=== PATIENT | female | born 1985 | race Caucasian/White ===

== ENCOUNTER 2019-12-09 08:33 | Emergency (ER) | payer MEDICAID ==
[~2019-12-09] VITALS: Ht 149.9 cm; Wt 79.8 kg
[2019-12-09 08:35] VITALS: BP 130/79
--- NOTE | 2019-12-09 08:42 | NUR ---
PT AMBULATES TO BED 7
--- NOTE | 2019-12-09 08:46 | NUR ---
34 Y/O FEMALE C/O COUGH, SORE THROAT, AND HEADACHE X 3 DAYS. DRY, NONPRODUCTIVE COUGH. DENIES N/V/D. NO SOB/CHEST PAIN. RR EVEN AND UNLABORED. DENIES SMOKING. HAS NOT TAKEN ANY MEDICATIONS TODAY. AFEBRILE. SITTING UPRIGHT X 1 SIDE RAIL RAISED. AT BEDSIDE. MEDHX: DM ALLERGIES: NKA
--- NOTE | 2019-12-09 08:48 | NUR ---
DR GARRETT AT BEDSIDE EXAMINING PT
--- NOTE | 2019-12-09 09:10 | NUR ---
STEP SWAB COLLECTED AND GIVEN TO LAB.
[2019-12-09 10:20] VITALS: BP 124/77
--- NOTE | 2019-12-09 10:21 | NUR ---
Patient discharged with v/s stable. Written and verbal after care instructions given and explained. Patient verbalized understanding. Ambulatory with steady gait. All questions addressed prior to discharge. Advised to follow up with PMD.
== END 2019-12-09 10:21 | disposition home or self-care (01) ==
LOC: MED 08:33
DX: J02.9 Acute pharyngitis, unspecified (principal); Z98.890 Other specified postprocedural states
CPT/HCPCS: 87081; 99283

== ENCOUNTER 2020-06-29 19:25 | Emergency (ER) | payer MEDICAID ==
[~2020-06-29] VITALS: Ht 149.9 cm; Wt 78.5 kg
[2020-06-29 19:33] VITALS: BP 159/105
--- NOTE | 2020-06-29 19:40 | NUR ---
34 YO F BIB SELF FOR C/C OF INTERMITTENT LOWER ABD SHARP PAIN X3 DAYS. PT STATES IT IS 3/10 AT THIS TIME. DENIES ANY PREVIOUS ABD SURGERIES. PT STATES SHE IS NAUSEOUS WITH NO VOMITING. DENIES TRAVEL, FEVER, COUGH, SOB. PT DENIES ANY OTC MEDS FOR PAIN. BED LOCKED AND IN LOWEST POSITION. SIDE RAILS X1. MED HX: DM2, HTN NKA RX: HUMYANCY CHURCH
--- NOTE | 2020-06-29 19:41 | NUR ---
PT AMBULATED TO BED #2
--- NOTE | 2020-06-29 19:58 | NUR ---
ERMD AT BEDSIDE EVALUATING PT
[2020-06-29] MEDS ORDERED: METOCLOPRAMIDE 10 MG TAB PO ONE (20:05)
[2020-06-29] MEDS ORDERED: ACETAMINOPHEN 325 MG TAB PO ONE (20:05)
[2020-06-29 20:40] LABS: BASOPHILS % (AUTO) 0.6 % (0.0-2.0); EOSINOPHILS # (AUTO) 0.1 K/uL (0-0.4); EOSINOPHILS % (AUTO) 1.6 % (0.0-4.0); HEMATOCRIT 40.4 % (36-48); HEMOGLOBIN 13.6 g/dL (12.0-16.0); LYMPHOCYTES # (AUTO) 2.3 K/uL (2.5-16.5); LYMPHOCYTES % (AUTO) 33.2 % (20.5-51.1); MEAN CORPUSCULAR HEMOGLOBIN 32 pg (27-31); MEAN CORPUSCULAR HGB CONC 34 g/dL (33-37); MEAN CORPUSCULAR VOLUME 94.6 fL (80-94); MONOCYTES # (AUTO) 0.4 K/uL (0.8-1.0); MONOCYTES % (AUTO) 6.5 % (1.7-9.3); NEUTROPHILS % (AUTO) 58.1 % (42.2-75.2); PLATELET COUNT (AUTO) 229 K/uL (140-450); RED BLOOD CELL COUNT(AUTO) 4.27 MIL/uL (4.20-5.40); RED CELL DISTRIBUTION WIDTH 14.2 % (11.6-13.7); WHITE BLOOD COUNT (AUTO) 6.8 K/uL (4.8-10.8)
[2020-06-29 20:55] LABS: ALBUMIN 3.7 g/dL (3.4-5.0); ANION GAP 15.5 (8-16); CARBON DIOXIDE 25.2 mmol/L (21-32); CREATININE 0.8 mg/dL (0.6-1.3); POTASSIUM 3.7 mmol/L (3.5-5.1); TOTAL BILIRUBIN 0.3 mg/dL (0.0-1.0)
[2020-06-29 21:21] VITALS: BP 159/105
== END 2020-06-29 21:21 | disposition home or self-care (01) ==
LOC: MED 19:25
DX: R10.2 Pelvic and perineal pain (principal); E11.9 Type 2 diabetes mellitus without complications
CPT/HCPCS: 36415; 80053; 81002; 81025; 82948; 83690; 84702; 85025; 99283; J8597

== ENCOUNTER 2021-05-16 17:02 | Emergency (ER) | payer MEDICAID ==
[~2021-05-16] VITALS: Ht 149.9 cm; Wt 72.1 kg
[2021-05-16 17:13] VITALS: BP 145/106
[2021-05-16] MEDS ORDERED: KETOROLAC 30 MG/ML VIAL IM ONE (17:30)
[2021-05-16] MEDS ORDERED: CEPH-588 PO (17:30)
--- NOTE | 2021-05-16 17:40 | NUR ---
PT BIB FAMILY C/O35 YEAR OLD FEMALE COMPLAINS OF LEFT HAND LACERATION X 2 WEEKS AGO. GLASS PIERCED HAND 2 WEEKS AGO. PT STATES TODAY HAND FEELS THROBBING/BURNING PAIN, SITE WITH PUS, BLEEDING CONTROLLED. BRUISING AND SWELLING PRESENT. PMH - DM2, HTN
--- NOTE | 2021-05-16 18:12 | NUR ---
MEDS GIVEN-NADR AT THIS TIME
[2021-05-16 18:17] VITALS: BP 132/99
== END 2021-05-16 18:20 | disposition home or self-care (01) ==
LOC: MED 17:02
DX: L03.114 Cellulitis of left upper limb (principal); E11.9 Type 2 diabetes mellitus without complications; Z79.899 Other long term (current) drug therapy
CPT/HCPCS: 90471; 90715; 96372; 99284; J1885

== ENCOUNTER 2021-06-14 14:33 | Inpatient (IN) | payer MEDICAID, SELFPAY ==
[~2021-06-14] VITALS: Ht 149.9 cm; Wt 73.5 kg
[~2021-06-14 14:33] MED LIST: CEPH-588 PO
[2021-06-14 14:41] VITALS: BP 204/121
--- NOTE | 2021-06-14 14:52 | NUR ---
Pt presents to ED c/o epigastric pain since yesterday. Per pt pain went away this morning, but came back after she ate food. Pain level 07/09. Denies N/V/D. Last BM 06/14/21, normal. BP 187/109, pt has hx of HTN but did not take her medication today.
[2021-06-14] MEDS ORDERED: KETOROLAC 30 MG/ML VIAL IVP ONE (15:25)
[2021-06-14] MEDS ORDERED: NACL 0.9% 1,000 ML IV SCH ×2 (15:25→23:55)
[2021-06-14] MEDS ORDERED: DICYCLOMINE HCL LIQUID 20 MG, ALUMINUM HYD/MAG/SIMETHICONE 30 ML, LIDOCAINE VISCOUS 2% ... PO ONE ×3 (15:25)
[2021-06-14] MEDS ORDERED: ONDANSETRON 4 MG/2 ML VIAL IVP ONE (15:25)
--- NOTE | 2021-06-14 15:41 | NUR ---
Ultrasound at bedside
[2021-06-14] MEDS ORDERED: DICYCLOMINE HCL LIQUID 10 MG/5 ML UDC ONE (15:45)
[2021-06-14] MEDS ORDERED: ALUMINUM HYD/MAG/SIMETHICONE 30 ML UDC ONE (15:45)
[2021-06-14 16:09] LABS: BASOPHILS # (AUTO) 0.1 K/uL (0.00-0.22); BASOPHILS % (AUTO) 0.5 % (0.0-2.0); EOSINOPHILS # (AUTO) 0.1 K/uL (0-0.4); EOSINOPHILS % (AUTO) 0.9 % (0.0-4.0); HEMATOCRIT 43.2 % (36-48); HEMOGLOBIN 16.5 g/dL (12.0-16.0); LYMPHOCYTES # (AUTO) 1.9 K/uL (2.5-16.5); LYMPHOCYTES % (AUTO) 11.5 % (20.5-51.1); MEAN CORPUSCULAR HEMOGLOBIN 35 pg (27-31); MEAN CORPUSCULAR HGB CONC 38 g/dL (33-37); MEAN CORPUSCULAR VOLUME 91.4 fL (80-94); MONOCYTES # (AUTO) 1.1 K/uL (0.8-1.0); MONOCYTES % (AUTO) 6.6 % (1.7-9.3); NEUTROPHILS # (AUTO) 13.5 K/uL (1.8-7.7); NEUTROPHILS % (AUTO) 80.5 % (42.2-75.2); PLATELET COUNT (AUTO) 182 K/uL (140-450); RED BLOOD CELL COUNT(AUTO) 4.72 MIL/uL (4.20-5.40); RED CELL DISTRIBUTION WIDTH 15.1 % (11.6-13.7); WHITE BLOOD COUNT (AUTO) 16.8 K/uL (4.8-10.8)
--- NOTE | 2021-06-14 16:12 | NUR ---
lab called and stated they are unable to run pt blood due to blood being lipemia. made aware
[2021-06-14] MEDS ORDERED: NACL 0.9% 1,000 ML IV ONE (16:20)
--- NOTE | 2021-06-14 17:09 | NUR ---
Pt ambulated to restroom with steady gait
[2021-06-14] MEDS ORDERED: MORPHINE SULFATE 4 MG/ML SYR IVP ONE ×2 (17:55→20:45)
--- NOTE | 2021-06-14 17:56 | NUR ---
MD made aware pt abdominal pain is back. Pain level 7/10
--- NOTE | 2021-06-14 18:30 | NUR ---
Blood redrawn and sent to lab
--- NOTE | 2021-06-14 18:52 | NUR ---
CT called and requiring creatinine before CT
--- NOTE | 2021-06-14 18:53 | NUR ---
Called Lab. Lab reports blood is still lepemic. MD Thornton made aware.
--- NOTE | 2021-06-14 19:13 | NUR ---
[facility]
--- NOTE | 2021-06-14 19:15 | NUR ---
Transfer of care and report given ALYSON Fernández
--- NOTE | 2021-06-14 19:16 | NUR ---
REPORT RECIEVED FROM ALYSON JACINTO FOR TRANSFER OF CARE AT THIS TIME.
--- NOTE | 2021-06-14 19:28 | NUR ---
PT [facility].
--- NOTE | 2021-06-14 19:56 | NUR ---
PT AMBULATED TO RESTROOM WITH STEADY AND EVEN GAIT.
[2021-06-14] MEDS ORDERED: LACTATED RINGERS 1,000 ML IV ONE (20:15)
--- NOTE | 2021-06-14 20:15 | NUR ---
ERMD MADE AWARE OF GLUCOSE 455.
[2021-06-14] MEDS ORDERED: PROCHLORPERAZINE 10 MG/2 ML VIAL IVP ONE (20:45)
--- NOTE | 2021-06-14 20:55 | NUR ---
CHRIS OF NARES COLLECTED AND TAKEN TO LAB.
[2021-06-14] MEDS ORDERED: INSU100I7 SQ (21:17)
[2021-06-14] MEDS ORDERED: METF500S6 PO (21:17)
--- NOTE | 2021-06-14 22:19 | NUR ---
ERMD AT BEDSIDE.
[2021-06-14 23:35] LABS: TRIGLYCERIDES 4865 mg/dL (30-150)
[2021-06-14 23:43] LABS: ANION GAP 13.7 (8-16); POTASSIUM 3.7 mmol/L (3.5-5.1)
[2021-06-14 23:44] LABS: ALBUMIN 3.6 g/dL (3.4-5.0); CREATININE 0.6 mg/dL (0.6-1.3); TOTAL BILIRUBIN 0.4 mg/dL (0.0-1.0)
[2021-06-14] MEDS ORDERED: KCL 20 MEQ/WATER INJ PREMIX 200 ML IV PRN ×2 (23:45→23:55)
[2021-06-14] MEDS ORDERED: MAGNESIUM OXIDE 400 MG TAB PO PRN ×2 (23:45→23:55)
[2021-06-14] MEDS ORDERED: MAG SULF 2000 MG/WATER PREMIX 50 ML IV PRN ×2 (23:45→23:55)
[2021-06-14] MEDS ORDERED: ONDANSETRON 4 MG/2 ML VIAL IVP PRN ×2 (23:45→23:55)
[2021-06-14] MEDS ORDERED: POTASSIUM CHLORIDE 10 MEQ TABER PO PRN ×2 (23:45→23:55)
[2021-06-14] MEDS ORDERED: MORPHINE SULFATE 4 MG/ML SYR IVP PRN (23:55)
[2021-06-14] MEDS ORDERED: HYDROcodone/APAP 5/325 MG 1 TAB TAB PO PRN (23:55)
[2021-06-14] MEDS ORDERED: ACETAMINOPHEN 325 MG TAB PO PRN (23:55)
--- NOTE | 2021-06-15 00:22 | NUR ---
PT AMBULATED TO RESTROOM WITH STEADY AND EVEN GAIT.
--- NOTE | 2021-06-15 00:35 | NUR ---
CALLED AND GAVE REPORT TO ALYSON ADAMS. PT TO BE ADMITTED TO [place] [id number].
--- NOTE | 2021-06-15 01:17 | NUR ---
PT TAKEN TO RM 113 VIA Kevin ADAMS RN MADE AWARE OF PTS ARRIVAL.
[2021-06-15 01:20] VITALS: BP 179/98
--- NOTE | 2021-06-15 01:20 | NUR ---
PATIENT ADMITTED TO THE MST UNIT FROM ER.
[2021-06-15] MEDS: MORPHINE SULFATE 4 MG/ML SYR IVP PRN ×4 (02:27→21:53)
--- NOTE | 2021-06-15 02:27 | NUR ---
ADMINISTERED PRN MORPHINE FOR 04/08 ABD PAIN. PT TOLERATE WELL. NS @ 80ML STARTED.
[2021-06-15] MEDS: NACL 0.9% 1,000 ML IV SCH ×3 (02:31→21:54)
--- NOTE | 2021-06-15 03:00 | NUR ---
NOTIFIED DOCTOR FOR DIET ORDER CLARIFICATION AND BP MEDS FOR PT'S HIGH BP.
--- NOTE | 2021-06-15 03:15 | NUR ---
DR. AVILES SPOT REMOVER, ORDERED CLEAR LIQUID DIET FOR THE PT.
[2021-06-15] MEDS ORDERED: hydrALAZINE 25 MG TAB PO PRN (03:55)
[2021-06-15] MEDS: HYDROcodone/APAP 5/325 MG 1 TAB TAB PO PRN (05:09)
--- NOTE | 2021-06-15 07:15 | NUR ---
RECEIVED BEDSIDE REPORT FROM LOADER UNLOADER NURSE FOR CONTINUITY OF CARE. PT IS AWAKE AND ALERT, A&OX4. ON RA WITH BREATHING UNLABORED. MS PATIENT. PT IS AMBULATORY INDEPENDENTLY. SKIN IS WARM, DRY, AND INTACT. IV IS IN THE RIGHT AC 20 GAUGE RUNNING NS AT 80 ML PER HOUR PER ORDER. PT IS STABLE. PLAN OF CARE DISCUSSED.
--- NOTE | 2021-06-15 07:40 | NUR ---
ENDORSE PT TO DAYSHIFT NURSE FOR CONTINUITY OF CARE
[2021-06-15 07:45] LABS: BASOPHILS # (AUTO) 0.1 K/uL (0.00-0.22); BASOPHILS % (AUTO) 0.5 % (0.0-2.0); EOSINOPHILS % (AUTO) 0.1 % (0.0-4.0); LYMPHOCYTES # (AUTO) 2.5 K/uL (2.5-16.5); LYMPHOCYTES % (AUTO) 12.8 % (20.5-51.1); MEAN CORPUSCULAR HGB CONC 45 g/dL (33-37); MONOCYTES # (AUTO) 0.9 K/uL (0.8-1.0); MONOCYTES % (AUTO) 4.8 % (1.7-9.3); NEUTROPHILS # (AUTO) 15.9 K/uL (1.8-7.7); NEUTROPHILS % (AUTO) 81.8 % (42.2-75.2); PLATELET COUNT (AUTO) 288 K/uL (140-450)
[2021-06-15 08:00] VITALS: BP 151/99
[2021-06-15] MEDS: DOCUSATE SODIUM 100 MG GELCAP PO SCH (08:20)
--- NOTE | 2021-06-15 08:20 | NUR ---
PT STATES SHE HAS PAIN IN HER ABD AT A SCALE OF 10/10. PT WAS GIVEN MORPHINE ORDERED IVP. BP WAS 151/99 PRIOR TO ADMINISTRATION OF MEDICATION. WILL CONTINUE TO MONITOR.
[2021-06-15] MEDS ORDERED: DOCUSATE SODIUM 100 MG GELCAP PO SCH (09:00)
--- NOTE | 2021-06-15 09:01 | NUR ---
PATIENT HAS BEEN SCREENED AND CATEGORIZED HIGH NUTRITION RISK. PATIENT WILL BE SEEN WITHIN 1-2 DAYS OF ADMISSION. 06/14/21-06/16/21 RECEIVED FNS REFERRAL FOR UNINTENTIONAL WEIGHT LOSS AND DECREASED PO INTAKE DORIS ANGUIANO RD
[2021-06-15 09:19] LABS: WHITE BLOOD COUNT (AUTO) 17.7 K/uL (4.8-10.8)
[2021-06-15 09:20] LABS: HEMOGLOBIN 14.3 g/dL (12.0-16.0); RED BLOOD CELL COUNT(AUTO) 4.44 MIL/uL (4.20-5.40)
[2021-06-15 09:21] LABS: MEAN CORPUSCULAR HEMOGLOBIN 32 pg (27-31); RED CELL DISTRIBUTION WIDTH 15.3 % (11.6-13.7)
--- NOTE | 2021-06-15 10:30 | NUR ---
AT BEDSIDE. PT IS STABLE AT THIS TIME. NO DISTRESS NOTED. DENIES PAIN. BREATHING IS UNLABORED ON RA. IV IS PATENT AND INTACT. WILL CONTINUE TO MONITOR.
--- NOTE | 2021-06-15 10:51 | NUR ---
DC PLANNING: RAISA SPOKE WITH AMIRAH MEDRANO CM AT [facility], VERBAL REVIEW GIVEN. CM WILL FOLLOW FOR NEEDS. Addendum: 06/15/21 at 1515 by Shahnaz Gzuman CM DC PLANNING: RAISA SPOKE WITH THE PATIENT AT BEDSIDE. CONFIRMED HER ADDRESS, PHONE NUMBER AND PRIMARY CONTACT INFORMATION PER HER FACE SHEET. SHE LIVES IN A 2 STORY CONDOMINIUM WITH HER AND DAUGHTER AND IS INDEPENDENT IN ALL ACTIVITIES. NO H/O HOME HEALTH OR DME. THE PATIENT HAS DM WITH DX WHEN SHE WAS AND DOES NOT HAVE A GLUCOMETER. SHE STATES THAT HER PCP WAS GOING TO SEND HER ONE AND THAT SHE IS CURRENTLY NOT FOLLOWING AN ADA DIET. SHE STATES THAT RD HAS BEEN TO SEE HER AND GAVE HER HANDOUTS FOR THE ADA DIET. RAISA ENDORSED THAT HER BS WAS VERY HIGH ON ADMISSION AND THAT SHE NEEDS TO FOLLOW UP WITH HER PCP TO GET RE-EVALUATED. THE PATIENT TAKES METFORMIN AND LONG ACTING INSULIN. RAISA ALSO ENDORSED THAT THE PATIENT NEEDS TO F/U ON GETTING A GLUCOMETER AND THAT SHE CAN PURCHASE ONE OTC AT MOST PHARMACIES. ASIDE FROM DM COMPLIANCE AND F/U WITH PCP NO OTHER DC NEEDS IDENTIFIED. RAISA WILL FOLLOW FOR NEEDS. Addendum: 06/16/21 at 1137 by Shahnaz Guzman CM DC PLANNING: RAISA GAVE UPDATED VERBAL REVIEW TO RAISA MACARIO FOR REGAL. ENDORSED THAT PATIENTS CO2 IS ELEVATED AND THAT PATIENT IS HYPERTENSIVE. WBC'S 17.4 TODAY, CONSULT WITH DR. SELINA SHORT. CM WILL FOLLOW FOR NEEDS.
--- NOTE | 2021-06-15 12:30 | NUR ---
ROUNDED ON PT AND SHE IS SITTING UP IN BED WATCHING TV. PT IS AWAKE AND ALERT. NO RESPIRATORY DISTRESS NOTED. NO PAIN NOTED. PT IS STABLE.
--- NOTE | 2021-06-15 14:47 | NUR ---
PT STATES SHE HAS PAIN IN HER ABD AT A SCALE OF 10/10. PT WAS GIVEN MORPHINE FOR PAIN IVP. BP WAS 155/101 PRIOR TO ADMINISTRATION OF MEDICATION.
--- NOTE | 2021-06-15 15:04 | NUR ---
CHECKED PT'S BP PRIOR TO ADMINISTERING MORPHINE. BP WAS 155/101 AND HR WAS 138. PAGED DR. SHEN FROM THE EXCHANGE TO NOTIFY HIM OF THESE FINDINGS. HE ORDERED 1 LITER BOLUS NS. WILL ADMINISTER ONCE VERIFIED.
--- NOTE | 2021-06-15 15:05 | NUR ---
06/15/21 RD INITIAL ASSESSMENT COMPLETED PLEASE REFER TO NUTRITION ASSESSMENT UNDER CARE ACTIVITY FOR ESTIMATED NUTRITIONAL NEEDS. 1. CONTINUE CLEAR LIQUID DIET TOLERATED 2. RECOMMEND ENSURE CLEAR BID 3. IF/WHEN MEDICALLY CLEARED ADVANCE TO CARDIAC AND CCHO [address] PROVIDED HYPERTRIGLYCERIDEMIA NUTRITION EDUCATION. PT ACCEPTED 5. RD TO FOLLOW-UP 3-5 DAYS, MODERATE RISK DORIS ANGUIANO, RD
[2021-06-15] MEDS ORDERED: NACL 0.9% 1,000 ML IV SCH (15:10)
[2021-06-15 16:00] VITALS: BP 155/100
--- NOTE | 2021-06-15 16:30 | NUR ---
RECHECKED PT'S BP AND HR. BP WAS 155/100 AND HR WAS 142. PAGED DR. SHEN THROUGH [facility] CHARGE NURSE. WILL WAIT FOR CALL BACK. Addendum: 06/15/21 at 1638 by Raeann Veronica RN AFTER 1 LITER NS BOLUS WAS COMPLETED.
[2021-06-15] MEDS: ACETAMINOPHEN 325 MG TAB PO PRN (16:36)
--- NOTE | 2021-06-15 16:37 | NUR ---
TYLENOL WAS ADMINISTERED FOR MILD PAIN AT A SCALE OF 3/10 IN THE ABDOMEN. IT WAS REQUESTED BY THE PT. WILL CONTINUE TO MONITOR FOR PAIN.
--- NOTE | 2021-06-15 16:40 | NUR ---
CALLED LAB BECAUSE BMP IS STILL PENDING. ASKED [employer] TO REDRAW BMP. SHE STATED SHE WILL BE RIGHT OVER TO DRAW LAB WORK.
--- NOTE | 2021-06-15 16:47 | NUR ---
SPOKE TO DR. SHEN AND INFORMED HIM THAT THE HR IS 145 AND BP IS 155/100. HE ORDERED THE PT TO BE ON TELE MONITOR. ALSO ORDERED TO INCREASE NS FLUID TO 125 ML/HR. HE ORDERED CBC, BMP, AND LIPASE TO BE DRAWN TOMORROW AM.
[2021-06-15 17:36] LABS: ALBUMIN 2.2 g/dL (3.4-5.0); ANION GAP 23.7 (8-16); ASPARTATE AMINOTRANSFERASE 22 U/L (15-37); CHLORIDE 102 mmol/L (98-107); CREATININE 0.7 mg/dL (0.6-1.3); GFR ARICAN-AMERICAN 123 mL/min (>90); GLUCOSE 284 mg/dL (74-106); HDL CHOLESTEROL 22 mg/dL (40-60); LIPASE 1233 U/L (73-393); MAGNESIUM 1.8 mg/dL (1.8-2.4); POTASSIUM 4.2 mmol/L (3.5-5.1); SODIUM SERUM 129 mmol/L (136-145); TOTAL BILIRUBIN 0.3 mg/dL (0.0-1.0); TRIGLYCERIDES 1371 mg/dL (30-150); UREA NITROGEN, BLOOD 4 mg/dL (7-18)
[2021-06-15 17:47] LABS: CARBON DIOXIDE 7.5 mmol/L (21-32)
--- NOTE | 2021-06-15 18:05 | NUR ---
RECEIVED CRITICAL LAB RESULT OF CO2 7.5. PAGED DR. NGUYEN HEAD BAGGAGE PORTER FOR DR. SHEN. WILL WAIT FOR CALL BACK.
--- NOTE | 2021-06-15 18:10 | NUR ---
ROUNDED ON PT. SHE IS SLEEPING WITH NO DISTRESS NOTED. BREATHING IS REGULAR AND UNLABORED. O2 SAT IS 98% ON RA. RR IS 18. IV IS INTACT AND INFUSING FLUIDS ORDERED. PT DOES NOT APPEAR TO BE IN ANY PAIN. WILL CONTINUE TO MONITOR.
--- NOTE | 2021-06-15 18:21 | NUR ---
SPOKE TO DR. NGUYEN AND INFORMED HIM ABOUT THE CRITICAL LAB VALUE CO2 7.5. ALSO INFORMED HIM THAT PT IS DIABETIC, HR HAS BEEN IN THE 140'S, BOLUS WAS ALREADY GIVEN, AND PT WAS PLACED ON TELE. HE GAVE ORDER FOR IONIZED CALCIUM BLOOD DRAW FOR TOMORROW AM, INSERT ALSTON CATHETER, TRIGLYCERIDE BLOOD DRAW TOMORROW AM, CONSULT WITH TAYLOR MARKS, AND STRICT I&O'S.
--- NOTE | 2021-06-15 18:41 | NUR ---
ALSTON CATHETER INSERTED WITH THE HELP OF ALYSON GERBER. SUCCESSFUL PLACEMENT WITH URINE RETURN, 300 ML IN TOTAL.
--- NOTE | 2021-06-15 19:26 | NUR ---
ENDORSED PT TO JAVA DEVELOPMENT TEAM LEAD NURSE FOR CONTINUITY OF CARE. PT IS STABLE AT THIS TIME. PLAN OF CARE DISCUSSED.
--- NOTE | 2021-06-15 19:30 | NUR ---
RECEIVED BEDSIDE REPORT FROM DAY SHIT NURSE. PATIENT IS AWAKE, ALERT, AND COOPERATIVE. RESPIRATION EVEN UNLABORED ON ROOM AIR. NO DISTRESS NOTED. SKIN IS WARM AND DRY. IV PATENT AND INTACT. PLAN OF CARE WAS DISCUSSED. ALL SAFETY MEASURES IN PLACE. BED IS AT LOW POSITION. CALL LIGHT WITHIN REACH, WILL CONTINUE TO MONITOR. FAMILY AT BEDSIDE. WILL CONTINUE TO MONITOR
[2021-06-15 20:00] VITALS: BP 146/99
--- NOTE | 2021-06-15 21:30 | NUR ---
CHECKED ON PATIENT, NO DISTRESS NOTED, DENIES PAIN AT THIS TIME, WILL CONTINUE TO MONITOR
--- NOTE | 2021-06-15 22:31 | NUR ---
PT AWAKE TALKING ON PHONE ON RA PT DENIES SOB W/ NO DISTRESS NOTED AT THIS TIME WILL CONTINUE TO MONITOR
--- NOTE | 2021-06-15 23:00 | NUR ---
PATIENT COMPLAINED OF PAIN 8/10 PRN PAIN MEDS GIVEN PER ORDER. WILL CONTINUE TO MONITOR
[2021-06-16] VITALS: BP 149/100
--- NOTE | 2021-06-16 00:05 | NUR ---
VITALS WERE TAKEN
[2021-06-16] MEDS: NACL 0.9% 1,000 ML IV SCH ×3 (01:19→22:04)
--- NOTE | 2021-06-16 03:00 | NUR ---
MADE ROUNDS. PATIENT SLEEPING RESPIRATION EVEN UNLABORED ON ROOM AIR. NO DISTRESS NOTED
--- NOTE | 2021-06-16 04:30 | NUR ---
PATIENT ACCIDENTALLY PULLED HER IV. INSERTED NEW IV SITE ON RIGHT HAND 24G TOLERATED WELL.
[2021-06-16 06:28] LABS: BASOPHILS # (AUTO) 0.1 K/uL (0.00-0.22); BASOPHILS % (AUTO) 0.6 % (0.0-2.0); EOSINOPHILS % (AUTO) 0.1 % (0.0-4.0); HEMATOCRIT 42.1 % (36-48); HEMOGLOBIN 14.1 g/dL (12.0-16.0); LYMPHOCYTES # (AUTO) 1.6 K/uL (2.5-16.5); LYMPHOCYTES % (AUTO) 9.1 % (20.5-51.1); MEAN CORPUSCULAR HEMOGLOBIN 32 pg (27-31); MEAN CORPUSCULAR HGB CONC 33 g/dL (33-37); MEAN CORPUSCULAR VOLUME 94.7 fL (80-94); MONOCYTES # (AUTO) 0.6 K/uL (0.8-1.0); MONOCYTES % (AUTO) 3.7 % (1.7-9.3); NEUTROPHILS % (AUTO) 86.5 % (42.2-75.2); PLATELET COUNT (AUTO) 271 K/uL (140-450); RED BLOOD CELL COUNT(AUTO) 4.44 MIL/uL (4.20-5.40); RED CELL DISTRIBUTION WIDTH 15.8 % (11.6-13.7); WHITE BLOOD COUNT (AUTO) 17.4 K/uL (4.8-10.8)
[2021-06-16 07:08] LABS: ALBUMIN 2.1 g/dL (3.4-5.0); ANION GAP 23.4 (8-16); CARBON DIOXIDE 9.9 mmol/L (21-32); CREATININE 0.7 mg/dL (0.6-1.3); MAGNESIUM 1.9 mg/dL (1.8-2.4); POTASSIUM 4.3 mmol/L (3.5-5.1); TOTAL BILIRUBIN 0.4 mg/dL (0.0-1.0)
--- NOTE | 2021-06-16 07:12 | NUR ---
ENDORSED PATIENT TO DAY SHIFT NURSE FOR CONTINUITY OF CARE.
[2021-06-16] MEDS: MORPHINE SULFATE 4 MG/ML SYR IVP PRN (08:16)
[2021-06-16] MEDS: DOCUSATE SODIUM 100 MG GELCAP PO SCH (08:16)
--- NOTE | 2021-06-16 08:35 | NUR ---
PT COMPLAINS OF 10/10 PAIN ON ABDOMEN AND AT URINARY CATHETER SITE. PT REPOSITIONED, ALSTON CARE PERFORMED . AREA CLEANSED . PT PROVIDED MENSTRUAL PADS AND UNDIES FOR MENSTRUATION. PT STATES ALL THESE METHODS WERE INNEFECTIVE AND PAIN IS STILL PRESENT. PT PRN MEDICATION GIVEN PER MD ORDER. PT EDUCATED AND VERBALIZED UNDERSTANDING . MPT TOLERATED WELL. NO S/SX OF DISTRESS AT THIS TIME. ALL SAFETY MEASURES ARE IN PLACE
--- NOTE | 2021-06-16 10:24 | NUR ---
PT RESTING. NO SIGNS AND SYMPTOMS OF DISTRESS. CHEST RISE AND FALL SYMMETRICAL. CALL LIGHT IN REACH. ALL SAFETY MEASURES IN PLACE
[2021-06-16 12:00] VITALS: BP 157/90
--- NOTE | 2021-06-16 12:04 | NUR ---
PTS RESULTED MRSA POSITIVE. MD MADE AWARE. PT PLACED ON CONTACT PRECAUTIONS AND PROTOCOL INITIATED PER MD ORDER.
[2021-06-16] MEDS ORDERED: INSULIN LISPRO SLIDING SCALE 100 UNITS/ML VIAL SUBQ PRN ×3 (13:55→14:00)
[2021-06-16] MEDS ORDERED: INSULIN LANTUS 100 UNITS/ML 10 ML VIAL SUBQ SCH ×2 (14:00)
[2021-06-16] MEDS ORDERED: CHLORHEXADINE GLUC 2% CLOTH TP SCH (14:00)
[2021-06-16] MEDS ORDERED: DEXTROSE 50% 50 ML SYR IVP PRN (14:00)
[2021-06-16] MEDS ORDERED: MUPIROCIN CA NASAL 2% 1GM TUBE NS SCH (14:00)
[2021-06-16] MEDS: ACETAMINOPHEN 325 MG TAB PO PRN (14:09)
[2021-06-16] MEDS: amLODIPine 5 MG TAB PO SCH (14:27)
[2021-06-16] MEDS: METOPROLOL 50 MG TAB PO SCH ×2 (14:27→21:27)
--- NOTE | 2021-06-16 14:34 | NUR ---
PATIENT GIVEN INSULIN PER MD ORDER. PT EDUCATED TO CALL IF SHE FEELS SWEATY /NAUSEOUS , EXPERIENCES VOMMITING , OR CONFUSION . PT EDUCATED ON MEDICATION VERBALIZED UNDERSTANDING , SCHEDULED MEDICATIONS GIVEN AT THIS TIME . ALL SAFETY MEASURES ARE IN PLACE.
[2021-06-16 14:37] LABS: ANION GAP 21.6 (8-16); CREATININE 0.6 mg/dL (0.6-1.3); POTASSIUM 3.9 mmol/L (3.5-5.1)
[2021-06-16 14:44] LABS: CARBON DIOXIDE 9.3 mmol/L (21-32)
[2021-06-16 16:00] VITALS: BP 174/94
[2021-06-16] MEDS ORDERED: BLOOD GLUCOSE MONITORING 1 DEV DEV FS SCH (16:00)
[2021-06-16] MEDS: BLOOD GLUCOSE MONITORING 1 DEV DEV FS SCH ×2 (16:00→20:00)
--- NOTE | 2021-06-16 16:00 | NUR ---
BG ASSESSED 207, PRN INSULIN GIVEN PER MD ORDER
--- NOTE | 2021-06-16 18:10 | NUR ---
AT BEDSIDE , PT RESTING COMFORTABLY DINNER PROVIDED , DENIES NAUSEA OR VOMITING ALL SAFETY MEASURES IN PLACE.
[2021-06-16 18:33] LABS: CARBON DIOXIDE 11.6 mmol/L (21-32); CREATININE 0.6 mg/dL (0.6-1.3); POTASSIUM 3.6 mmol/L (3.5-5.1)
[2021-06-16 18:59] LABS: MAGNESIUM 1.7 mg/dL (1.8-2.4)
--- NOTE | 2021-06-16 19:00 | NUR ---
PATIENT RECEIVED IN BED ALERT AND ORIENTED X 4. PATIENT EDUCATED TO RN PLAN OF CARE, MEDICATION REGIMEN, FALL AND SAFETY PRECAUTIONARY MEASURES AND MEDICAL PLAN OF CARE. PT SELF REPOSITIONS. DISCUSSED WITH PATIENT PURPOSE, ACTIONS AND SIDE EFFECT OF MEDICATIONS. PT PRN MEDICATION GIVEN PER MD ORDER. PT EDUCATED AND VERBALIZED UNDERSTANDING . ASSISTED PATIENT WITH PERSONAL HYGIENE AND CARE. NO S/SX OF DISTRESS AT THIS TIME. ALL SAFETY MEASURES ARE IN PLACE. PATIENT VERBALIZED UNDERSTANDING OF RN PLAN OF CARE. FALL AND SAFETY INTERVENTIONAL MEASURES MAINTAINED. RN TO CONTINUE WITH MEDICAL PLAN OF CARE.
--- NOTE | 2021-06-16 19:30 | NUR ---
PT ENDORSED TO TRAIN GATE ATTENDANT RN FOR CONTINUITY OF CARE. PT INSTABLE CONDITION.
[2021-06-16 20:00] VITALS: BP 158/86
[2021-06-16 20:14] LABS: PHOSPHORUS 0.8 mg/dL (2.5-4.9)
--- NOTE | 2021-06-16 21:00 | NUR ---
RN MESSAGED DR LOMBARDO REGARDING PATIENT ABNORMAL LAB RESULT PHOSPHATE 0.8. NURSING SENIOR GENETIC COUNSELOR INFORMED OF LAB RESULT AT THIS TIME. NO ACUTE DISTRESS NOTED.
[2021-06-16] MEDS: HYDROcodone/APAP 5/325 MG 1 TAB TAB PO PRN (21:28)
[2021-06-16] MEDS ORDERED: SODIUM PHOSPHATE 30 MMOLE in NACL 0.9% 250 ML IV SCH (23:05)
[2021-06-16 23:58] VITALS: BP 150/82
[2021-06-17] MEDS: BLOOD GLUCOSE MONITORING 1 DEV DEV FS SCH ×3 (00:27→08:47)
[2021-06-17 00:49] LABS: CREATININE 0.6 mg/dL (0.6-1.3)
[2021-06-17 00:53] LABS: MAGNESIUM 1.7 mg/dL (1.8-2.4)
[2021-06-17 01:06] LABS: PHOSPHORUS 0.7 mg/dL (2.5-4.9)
--- NOTE | 2021-06-17 01:50 | NUR ---
PATIENT HAS AN ORDER FOR SODIUM PHOS 30 MMOL IV BUT MEDS IS NOT AVAILABLE IN THE OMNICELL. CALLED THE OUTSIDE [facility] TO VERIFY IF THE PHARMACIST HAS TO MIX THE MEDICATION AND PER [facility] ITS IN THE [facility], MADE THEM AWARE THAT I ALREADY CHECK THE AVAILABILITY OF THE MEDICATION ON THE OMNICELL AND SHOWING NONE. CALLED THE SHIRT FOLDING MACHINE OPERATOR PHILOMENA AND NOTIFIED THAT WE NEEDED A SODIUM PHOS IV AND PER SHIRT FOLDING MACHINE OPERATOR PHILOMENA HE CANNOT OVERRIDE IT AND STATED TO WAIT IN AM TO INFUSED THE MEDICATION.
[2021-06-17 04:00] VITALS: BP 144/84
[2021-06-17] MEDS: NACL 0.9% 1,000 ML IV SCH (06:19)
[2021-06-17 06:20] LABS: BASOPHILS # (AUTO) 0.1 K/uL (0.00-0.22); BASOPHILS % (AUTO) 0.7 % (0.0-2.0); EOSINOPHILS # (AUTO) 0.1 K/uL (0-0.4); EOSINOPHILS % (AUTO) 0.9 % (0.0-4.0); HEMATOCRIT 35.4 % (36-48); HEMOGLOBIN 12.3 g/dL (12.0-16.0); LYMPHOCYTES # (AUTO) 1.1 K/uL (2.5-16.5); LYMPHOCYTES % (AUTO) 11.8 % (20.5-51.1); MEAN CORPUSCULAR HEMOGLOBIN 31 pg (27-31); MEAN CORPUSCULAR HGB CONC 35 g/dL (33-37); MONOCYTES # (AUTO) 0.3 K/uL (0.8-1.0); NEUTROPHILS # (AUTO) 7.6 K/uL (1.8-7.7); NEUTROPHILS % (AUTO) 83.6 % (42.2-75.2); PLATELET COUNT (AUTO) 236 K/uL (140-450); RED BLOOD CELL COUNT(AUTO) 3.93 MIL/uL (4.20-5.40); RED CELL DISTRIBUTION WIDTH 15.8 % (11.6-13.7); WHITE BLOOD COUNT (AUTO) 9.1 K/uL (4.8-10.8)
[2021-06-17 06:42] LABS: ANION GAP 16.1 (8-16); CARBON DIOXIDE 16.7 mmol/L (21-32); CREATININE 0.4 mg/dL (0.6-1.3)
[2021-06-17 06:46] LABS: ALBUMIN 1.8 g/dL (3.4-5.0); MAGNESIUM 1.8 mg/dL (1.8-2.4); TOTAL BILIRUBIN 0.3 mg/dL (0.0-1.0)
[2021-06-17 06:47] LABS: POTASSIUM 2.8 mmol/L (3.5-5.1)
--- NOTE | 2021-06-17 06:49 | NUR ---
RN MESSAGE DR. OROPEZA REGARDING PATIENT LAB RESULTS Kt 2.8, CALCIUM 6.8. ENDORSED PATIENT LAB RESULT TO ONCOMING RN FOR FOLLOW UP. RN MESSAGED DR. OROPEZA FOR FOLLOW UP. DIGITAL SERVICE ENGINEER INFORMED.
--- NOTE | 2021-06-17 07:10 | NUR ---
RECEIVED REPORT FROM WINDOWS SYSTEMS ENGINEER NURSE. PT IN BED ALERT AND ORIENTED X 4. PLAN OF CARE DISCUSSED . PT SELF REPOSITIONS. DISCUSSED WITH PATIENT PURPOSE, ACTIONS AND SIDE EFFECT OF MEDICATIONS VERBALIZED UNDERSTANDING . NO S/SX OF DISTRESS NOTED, BREATHING EVEN UNLABORED . ALL SAFETY MEASURES ARE IN PLACE. FALL AND SAFETY MEASURES MAINTAINED.CALLS LIGHT WITHIN REACH
[2021-06-17 08:00] VITALS: BP 151/84
[2021-06-17] MEDS: amLODIPine 5 MG TAB PO SCH (08:32)
[2021-06-17] MEDS: METOPROLOL 50 MG TAB PO SCH (08:33)
[2021-06-17] MEDS: DOCUSATE SODIUM 100 MG GELCAP PO SCH (08:33)
--- NOTE | 2021-06-17 08:35 | NUR ---
PT RECIEVE MORNING MEDICATIONS TOLERATED WELL, PT POTASSIUM CALCIUM AND PHOSPHORUS LOW, INFORMED DR SHEN. OBTAINED ORDER FOR REPLACEMENT. ALL SAFETY MEASURES IN PLACE, CALLS LIGHT WITHIN REACH.
--- NOTE | 2021-06-17 10:29 | NUR ---
PT SITTING ON BED, HER NEXT TO HER, NO COMPLAINS AT THIS TIME, ALL SAFETY MEASURES IN PLACE, VALLS LIGHT WITHIN REACH
--- NOTE | 2021-06-17 11:11 | NUR ---
PT UPSET ANS ASKING TO LEAVE AGAINST MEDICAL ADVICE, EDUCATED PT THE IMPORTANT OF MEDICAL ADVICE AND RISK ASSOCIATED, AND LEAVING AGAINST MEDICAL ADVICE WILL BE UNDER HER RESPONSIBILITY. PT CLAIMS THAT SHE DOES NOT LIKE THE HOSPITAL AND SHE STILL WANT TO LEAVE. Addendum: 06/17/21 at 1114 by Jordan Koo RN RN DR SHEN INFORMED, AND ASK TO LET HER SIGN THE FORM LEAVING AGINST MEDICAL ADVICE
--- NOTE | 2021-06-17 11:20 | NUR ---
PT SIGN AGAINST MEDICAL ADVICE FORM, IV REMOVED, BLEEDING CONTROLLED, SKIN INTACT, PT WALKED TO THE FRONT LOBBY BY THE NURSE AND HER
[2021-06-17] MEDS ORDERED: POTASSIUM PHOSPHATE 30 MM in NACL 0.9% 500 ML IV SCH (13:00)
[2021-06-17] MEDS ORDERED: KCL 20 MEQ/WATER INJ PREMIX 100 ML IV SCH (21:30)
== END 2021-06-17 12:00 | disposition left against medical advice (07) | DRG 282 ==
LOC: MED 14:33 → MMU 23:54 → MTU 06-15 00:40
PROVIDERS: ADMIT Hospitalist; ATTEND Hospitalist
DX: K85.80 Other acute pancreatitis without necrosis or infection (principal); E11.10 Type 2 diabetes mellitus with ketoacidosis without coma; E83.51 Hypocalcemia; E78.1 Pure hyperglyceridemia; N83.209 Unspecified ovarian cyst, unspecified side; I10 Essential (primary) hypertension; E78.5 Hyperlipidemia, unspecified; D72.829 Elevated white blood cell count, unspecified; Z20.822 Contact with and (suspected) exposure to COVID-19; E66.9 Obesity, unspecified; T38.3X5A Adverse effect of insulin and oral hypoglycemic [antidiabetic] drugs, initial encounter; Z79.4 Long term (current) use of insulin; Z98.891 History of uterine scar from previous surgery; Z68.32 Body mass index [BMI] 32.0-32.9, adult; Y92.89 Other specified places as the place of occurrence of the external cause
CPT/HCPCS: 36415; 36600; 76705; 80048; 80053; 82009; 82330; 82465; 82803; 82948; 83036; 83605; 83690; 83735; 84100; 84478; 85025; 87081; 96361; 96374; 96375; 96376; 99285; J0780; J1815; J1885; J2270; J2405; J3480; J7030; Q0092; Q9967